=== PATIENT | male | born 1960 | race Caucasian/White ===

== ENCOUNTER 2021-08-27 09:35 | Emergency (ER) | payer OTHER, SELFPAY ==
--- NOTE | ~2021-08-27 | CT_ITS ---
EXAMINATION: CT brain wo con DATE: 08/27/2021 10:36 INDICATION: Confusion. Head injury. TECHNIQUE: Computed tomography (CT) of the head was performed without intravenous contrast. The mA wa s adjusted according to patient size. Iterative reconstruction technique was employed. The dose-lengt h product was 681.00 mGy-cm. COMPARISON: None FINDINGS: There is chronic encephalomalacia involving the left frontal lobe, anterior left temporal l obe, and left insula. There is no intracranial hemorrhage, acute infarction, or abnormal intracranial mass lesion. There is ex vacuo dilatation of left lateral ventricle. There are changes of left sided craniotomy. The mastoid air cells are normal. There is mild mucosal thickening in the paranasal sinu ses. There are likely changes of ocular lens replacement surgeries. IMPRESSION: 1. Chronic encephalomalacia involving the left frontal lobe, anterior left temporal lobe, and left in sula. Reviewed, dictated and finalized at location B. IMPRESSION: 1. Chronic encephalomalacia involving the left frontal lobe, anterior left temp oral lobe, and left insula.
--- NOTE | ~2021-08-27 | XR_ITS ---
EXAMINATION: XR hip RT 2V w AP pelvis DATE: 08/27/2021 10:43 INDICATION: Right hip pain. Fall. TECHNIQUE: An anteroposterior view of the pelvis and 2 views of right hip were obtained. COMPARISON: None. FINDINGS: Bone alignment is normal. No fracture. There is mild lumbar spondylosis. There is mild oste oarthritis of the hips. IMPRESSION: 1. Mild osteoarthritis of the hips. Reviewed, dictated and finalized at location B.
--- NOTE | ~2021-08-27 | XR_ITS ---
EXAMINATION: XR knee RT min 4V DATE: 08/27/2021 10:43 INDICATION: Right knee pain. Fall. TECHNIQUE: 4 views of right knee were obtained. COMPARISON: None. FINDINGS: Bone alignment is normal. No fracture. There is mild tricompartmental osteoarthritis charac terized by tiny osteophytes. No joint space narrowing. No knee joint effusion. IMPRESSION: 1. Mild right knee osteoarthritis. Reviewed, dictated and finalized at location B.
[2021-08-27 09:37] VITALS: BP 102/73; PULSE 84; RESP 18; TEMP 36.8; O2SAT 98
--- NOTE | 2021-08-27 11:14 | PC.NURSE ---
pt ambulatory with assistance. no pain noted.
--- NOTE | 2021-08-27 11:18 | ED.FALL ---
HPI - Fall General Chief Complaint: Fall Stated Complaint: fall Time Seen by Provider: 08/27/21 09:47 Source: patient Mode of arrival: ambulatory Limitations: no limitations History of Present Illness HPI Narrative: 60-year-old male presenting to the emergency department from his retirement after having a ground-level fall. 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 Patient did complain of some right hip pain and states he did strike his head. Patient denies loss of consciousness. Patient states he was able to ambulate after the incident with assistance. Related Data Home Medications Medication Instructions Recorded Confirmed acetaminophen 500 mg PO QID PRN 08/27/21 08/27/21 ascorbic acid (vitamin C) [Vitamin 250 mg PO DAILY 08/27/21 08/27/21 C] cholecalciferol (vitamin D3) 25 mcg PO DAILY 08/27/21 08/27/21 [Vitamin D3] divalproex 125 mg PO Q8H 08/27/21 08/27/21 famotidine 10 mg PO DAILY 08/27/21 08/27/21 fluvoxamine 100 mg PO HS 08/27/21 08/27/21 guaifenesin [Siltussin SA] 200 mg PO Q4H PRN 08/27/21 08/27/21 hydroxyzine HCl 25 mg PO TID PRN 08/27/21 08/27/21 ibuprofen 800 mg PO TID PRN 08/27/21 08/27/21 latanoprost 1 drp EACH EYE DAILY 08/27/21 08/27/21 lurasidone [Latuda] 120 mg PO DAILY 08/27/21 08/27/21 melatonin 3 mg PO HS PRN 08/27/21 08/27/21 hiegdblcsnbv-heh-fmzm-FA-vit K tablet PO 08/27/21 [Adults Multivitamin] olanzapine 20 mg PO DAILY 08/27/21 08/27/21 oxybutynin chloride 15 mg PO DAILY 08/27/21 08/27/21 polyethylene glycol ea MISCELLANEOUS 08/27/21 risperidone 4 mg PO BID 08/27/21 08/27/21 tamsulosin 0.4 mg PO DAILY 08/27/21 08/27/21 trihexyphenidyl 5 mg PO TID 08/27/21 08/27/21 Allergies Allergy/AdvReac Type Severity Reaction Status Date / Time benztropine Allergy Unknown Verified 08/27/21 09:54 haloperidol Allergy Unknown Verified 08/27/21 09:54 phenytoin [From Dilantin] Allergy Unknown Verified 08/27/21 09:54 ziprasidone [From Geodon] Allergy Unknown Verified 08/27/21 09:54 Review of Systems Review of Systems: CONSTITUTIONAL: Denies fever, chills, or sweats. EYES: Denies visual changes, redness, or discharge. ENT: Denies rhinorrhea, congestion, sore throat, or otalgia. CARDIOVASCULAR: Denies chest pain, palpitations, or edema. RESPIRATORY: Denies cough or dyspnea. GASTROINTESTINAL: Denies abdominal pain, nausea, vomiting, or diarrhea. GENITOURINARY: Denies dysuria or hematuria. SKIN: Denies rash or itching. MUSCULOSKELETAL: See HPI NEUROLOGIC: Patient has normal neuro baseline per caregiver Exam Narrative: APPEARANCE: Well appearing, no pain, no distress, well-nourished. HEAD: normocephalic, atraumatic. EYES: PERRLA/EOMI, conjunctivae clear. NOSE: Normal no drainage NECK: Supple. No adenopathy, no masses. RESPIRATORY: Airway patent, respirations nonlabored. Clear to auscultation bilaterally, no rales, rhonchi, wheezing. CARDIOVASCULAR: Regular rate and rhythm without murmurs rubs or gallops. ABDOMINAL: Soft, nontender, nondistended, normal bowel sounds MUSCULOSKELETAL: Moves all extremities. Some pain with passive motion of the right hip. NEURO: Alert. Cranial nerves II through XII intact. Good gait. Good coordination SKIN: Warm, dry. Normal Color Course Course Emergency Course: X-rays were negative for acute fractures. Head CT was negative for any acute intracranial abnormality. Patient was able to ambulate in the emergency department without pain or issue. Patient and caregiver directed on the results of his work-up Vital Signs Vital signs: Vital Signs Temperature 98.2 F 08/27/21 09:37 Pulse Rate 84 08/27/21 09:37 Respiratory Rate 18 08/27/21 09:37 Blood Pressure 102/73 08/27/21 09:37 Pulse Oximetry 98 08/27/21 09:37 Temperature 98.2 F 08/27/21 09:37 Pulse Rate 83 08/27/21 11:39 Respiratory Rate 18 08/27/21 11:39 Blood Pressure 103/76 08/27/21 11:39
--- NOTE | 2021-08-27 11:33 | PC.NURSE ---
Called [facility] and they are sending someone out to pick him up
[2021-08-27 11:39] VITALS: BP 103/76; PULSE 83; RESP 18; O2SAT 98
== END 2021-08-27 11:41 ==
PROVIDERS: Emergency Provider Emergency Medicine
DX: S09.90XA Unspecified injury of head, initial encounter (principal); S79.911A Unspecified injury of right hip, initial encounter; M17.11 Unilateral primary osteoarthritis, right knee; M16.0 Bilateral primary osteoarthritis of hip; W01.0XXA Fall on same level from slipping, tripping and stumbling without subsequent striking against object, initial encounter
CPT/HCPCS: 70450; 73502; 73564; 99284

== ENCOUNTER 2023-04-08 22:16 | Day surgery (SDC) | payer OTHER, SELFPAY ==
--- NOTE | ~2023-04-08 | CT_ITS ---
EXAMINATION: CTA abdomen pelvis DATE: 04/08/2023 23:24 INDICATION: gi bleed TECHNIQUE: Computed tomography (CT) of the abdomen and pelvis was performed with 100 mL Omnipaque-350 intravenous contrast, in the arterial phase. Automated exposure control and iterative reconstruction technique were employed. The dose-length product was 1245.44 mGy-cm. COMPARISON: None. FINDINGS: Lower thorax: Moderate hiatal hernia. Distal esophageal wall edema. Moderate coronary artery calcific ations. Liver: Enlarged. Granulomatous calcifications. Scattered hypodensities, too small to characterize but most likely represent cysts or hemangiomas. Diffuse fatty infiltration. Biliary/Gallbladder: Gallbladder is absent. No bile duct dilation. Pancreas: No mass or duct dilation. Spleen: Granulomatous calcifications Adrenals:No mass. Kidneys: Absent right kidney. No suspicious mass, obstructing stone, or hydronephrosis on the left. GI tract: In the stomach there are linear and curvilinear hyperdensities, that appear to be contiguou s, with scattered areas of gas bubbles within the folds. Focal 7 mm hyperdensity associated with a po rtion of this foreign body. No small or large bowel dilation. Mostly fluid-filled colon. Normal appen rommel. Mesentery/Peritoneum: No ascites, mass, or free air. Retroperitoneum: No mass. Atherosclerotic abdominal aortic and/or arterial calcifications. Pelvis: Pelvic organs are within normal limits. Soft Tissues: Soft tissues and body wall unremarkable. Bones: No acute osseous finding. IMPRESSION: Moderate esophagitis and hiatal hernia. Suspected foreign body in the stomach, correlate with history of recent ingestions. No CT evidence of extravasation to suggest acute GI bleed. Mostly fluid-filled colon as can be seen with diarrheal illness. Unclotted blood would appear similar ly, but again there is no current CT finding of active hemorrhage. Hepatomegaly and steatosis. Reviewed, dictated and finalized at location K. [facility] IMPRESSION: Moderate esophagitis and hiatal hernia. Suspected foreign body in the stomach, correlate with history of recent ingesti ons. No CT evidence of extravasation to suggest acute GI bleed. Mostly fluid-filled colon as can be seen with diarrheal illness. Unclotted bloo d would appear similarly, but again there is no current CT finding of active he morrhage. Hepatomegaly and steatosis.
[2023-04-08 22:18] VITALS: BP 115/90; PULSE 92; RESP 12; TEMP 36.5; O2SAT 98
[2023-04-08] MEDS: ONDANSETRON INJ 4 MG/2 ML VIAL IV PUSH (22:28)
[2023-04-08] MEDS: PANTOPRAZOLE SODIUM IV 40 MG VIAL 80 MG IV PUSH (22:29)
[2023-04-08 22:37] LABS: Basophils Percent Auto 0.2 % (0.2-1.2); Eosinophils Absolute Auto 0.2 K/mm3 (0-0.3); Eosinophils Percent Auto 2.9 % (0-4.4); Hematocrit 42.3 % (42.0-52.0); Hemoglobin 13.3 g/dL (14.0-18.0); Immature Granulocyte Absolute 0.02 K/mm3 (0.00-0.031); Immature Granulocyte Percent A 0.3 % (0-0.5); Lymphocytes Absolute Auto 0.43 K/mm3 (0.9-3.2); Lymphocytes Percent Auto 7.2 % (18.3-44.2); Mean Corpuscular HGB Conc 31.4 g/dl (32-36); Mean Corpuscular Hemoglobin 28.6 pg (26-34); Mean Platelet Volume 10.2 fl (7.4-10.4); Monocytes Absolute Auto 0.5 K/mm3 (0.1-0.6); Monocytes Percent Auto 7.6 % (2.6-8.5); Neutrophils Absolute Auto 4.9 K/mm3 (1.3-6.7); Neutrophils Percent Auto 81.8 % (45.5-73.1); Platelet Count Result 265 k/mm3 (150-375); Red Blood Count 4.65 M/mm3 (4.6-6.20); Red Cell Distribution Width 13.9 % (11.5-14.5); White Blood Count 5.9 K/mm3 (4.5-10.0)
[2023-04-08 22:48] LABS: Alanine Aminotransferase 26 U/L (6-50); Albumin Level 4.1 g/dL (3.5-5.1); Alkaline Phosphatase 78 U/L (38-126); Anion Gap 7 mmol/L (8-16); Aspartate Amino Transferase 33 U/L (17-59); Bilirubin,Total 0.5 mg/dL (0.2-1.3); Blood Urea Nitrogen 31 mg/dL (9-20); Calcium 8.8 mg/dL (8.4-10.2); Carbon Dioxide 29 mmol/L (22-30); Chloride 105 mmol/L (98-107); Estimated CRCL calculation 72 ml/min; Estimated Glomerular Filt Rate > 60; Glucose 123 mg/dL (65-110); Lipase 49 U/L (23-300); Sodium 141 mmol/L (137-145)
[2023-04-08 22:50] LABS: Prothrombin Time 13.2 Seconds (11.1-14.7)
[2023-04-08 22:51] LABS: Partial Thromboplastin Time 30.2 SECONDS (22.3-36.8)
[2023-04-08 22:59] LABS: Lactic Acid Reflex 1.6 mmol/L (0.7-2.0)
[2023-04-09] VITALS (43 sets, daily range): BP systolic 97–131; BP diastolic 66–87; PULSE 69–96; RESP 16–32; TEMP 36.7; O2SAT 90–100
--- NOTE | 2023-04-09 00:14 | ED.GENADULT ---
HPI - General Adult General Chief complaint: Abdominal Pain Stated complaint: ABD PAIN; N/V History of Present Illness HPI narrative: Patient presents to the emergency department by EMS from his nursing facility. Started vomiting after eating dinner. Patient denies abdominal pain. Denies diarrhea. He has a history of bipolar and schizophrenia. In no distress. He does report nausea EMS had not given him anything for nausea Related Data Home Medications Medication Instructions Recorded Confirmed acetaminophen 500 mg tablet 500 mg PO QID PRN Pain 08/27/21 08/27/21 ascorbic acid (vitamin C) 500 mg 250 mg PO DAILY 08/27/21 08/27/21 tablet (Vitamin C) cholecalciferol (vitamin D3) 25 25 mcg PO DAILY 08/27/21 08/27/21 mcg (1,000 unit) capsule (Vitamin D3) divalproex 125 mg capsule,delayed 125 mg PO Q8H 08/27/21 08/27/21 release sprinkle famotidine 10 mg tablet 10 mg PO DAILY 08/27/21 08/27/21 fluvoxamine 100 mg tablet 100 mg PO HS 08/27/21 08/27/21 guaifenesin 100 mg/5 mL oral 200 mg PO Q4H PRN Cough 08/27/21 08/27/21 liquid (Siltussin SA) hydroxyzine HCl 25 mg tablet 25 mg PO TID PRN Anxiety 08/27/21 08/27/21 ibuprofen 800 mg tablet 800 mg PO TID PRN Pain 08/27/21 08/27/21 latanoprost 0.005 % eye drops 1 drp EACH EYE DAILY 08/27/21 08/27/21 lurasidone 120 mg tablet (Latuda) 120 mg PO DAILY 08/27/21 08/27/21 melatonin 3 mg tablet 3 mg PO HS PRN Sleep 08/27/21 08/27/21 multivit with minerals-iron 18 tablet PO 08/27/21 mg-folic ac 400 mcg-vit K 25 mcg tablet (Adults Multivitamin) olanzapine 20 mg tablet 20 mg PO DAILY 08/27/21 08/27/21 oxybutynin chloride 15 mg 15 mg PO DAILY 08/27/21 08/27/21 tablet,extended release 24 hr polyethylene glycol ea miscellaneous 08/27/21 risperidone 4 mg tablet 4 mg PO BID 08/27/21 08/27/21 tamsulosin 0.4 mg capsule 0.4 mg PO DAILY 08/27/21 08/27/21 trihexyphenidyl 5 mg tablet 5 mg PO TID 08/27/21 08/27/21 Allergies Allergy/AdvReac Type Severity Reaction Status Date / Time benztropine Allergy Unknown Verified 08/27/21 09:54 haloperidol Allergy Unknown Verified 08/27/21 09:54 phenytoin [From Dilantin] Allergy Unknown Verified 08/27/21 09:54 ziprasidone [From Geodon] Allergy Unknown Verified 08/27/21 09:54 Course Vital Signs Vital signs: Vital Signs Temperature 36.5 C 04/08/23 22:18 Pulse Rate 92 04/08/23 22:18 Respiratory Rate 12 04/08/23 22:18 Blood Pressure 115/90 04/08/23 22:18 Pulse Oximetry 98 04/08/23 22:18 Oxygen Delivery Room Air 04/08/23 22:18 Temperature 36.5 C 04/08/23 22:18 Pulse Rate 87 04/09/23 03:53 Respiratory Rate 16 04/09/23 03:53 Blood Pressure 100/81 04/09/23 03:53 Pulse Oximetry 95 04/09/23 03:53 Oxygen Delivery Room Air 04/08/23 22:18 Medical Decision Making MDM Narrative Medical decision making narrative: patient will need GI referral. Hand Scraper on-call tonight. He has accepted this transfer to [facility] will likely get a bed tomorrow morning. At that time will consult GI here for possible admission. Patient stable with no additional vomiting. Concern for large foreign body in his stomach [facility] full and cannot accept patients. [place] facilities are also full. Dr Kwong with GI at [facility]. Pt accepted to the ER at [facility] )7:20a Pt still in the ED pending transfer. I spoke to GI, dr Lazar and he is willing to treat pt from our ED. Clarified that he will see the patient while in the ED. Pt does not need to be admitted. Vital Signs Vital Signs: Vital Signs Temperature 36.5 C 04/08/23 22:18 Pulse Rate 92 04/08/23 22:18 Respiratory Rate 12 04/08/23 22:18 Blood Pressure 115/90 04/08/23 22:18 Pulse Oximetry 98 04/08/23 22:18 Oxygen Delivery Room Air 04/08/23 22:18 Temperature 36.5 C 04/08/23 22:18 Pulse Rate 87 04/09/23 03:53 Respiratory Rate 16 04/09/23 03:53 Blood Pressure 100/81 04/09/23 03:53 Pulse Oximetry 95 04/09/23 03:53
--- NOTE | 2023-04-09 02:07 | PC.NURSE ---
Kalie from [facility] transfer center called to triage patient. Patient has been accepted to [facility] and still waiting for a bed.
[2023-04-09] MEDS: LACTATED RINGERS 1,000 ML 150 ML IV CONT (08:13)
--- NOTE | 2023-04-09 08:22 | SUR.PREOP ---
Called patient's facility in which he resides in. Spoke with his [employer] V[employer] Installer and Ernestine the nurse. Gave them an update on the patient's plan, inquired regarding transportation getting him back to the facility when his procedure had been completed. They asked to give them a 30 min head up and they would have transportation available for him. They inquired if any of his psychotropic medications were given to him during his stay. I told him none was given from the report I received from the ER. They asked if we could give him some of those medication as he was a fragile schizophrenia patient and were concerned that he had not received any of those medication. I confirmed what medications they wanted him to have and told them we would send a report of what he received and when in his discharge paperwork. Spoke with Ed from pharmacy and orders placed through pharmacy communication order. Phone number given to Ed Pharmacist of the facility the patient resides in case he had further questions on the medications.
--- NOTE | 2023-04-09 08:30 | WPDANESEPPF ---
Anes - Initial Pre Proc Eval Procedure: Operation Date: 04/09/23 15:00 Proposed Procedures p Esophagogastroduodenoscopy with Foreign Body Removal - Ari Sigala MD Date/Time: 04/09/23 08:30 Surgeon: Ari Sigala MD Pre Op Diagnosis: ABD PAIN; N/V Patient Data Age: 62 Gender: M Height: 1.75 m Weight: 101.1 kg Last Vital Signs Temp 98.1 F 04/09/23 07:50 Pulse 87 04/09/23 07:50 Resp 18 04/09/23 07:50 BP 122/85 04/09/23 07:50 Pulse Ox 97 04/09/23 07:50 O2 Del Method Room Air 04/09/23 07:50 Allergies Allergy/AdvReac Type Severity Reaction Status Date / Time benztropine Allergy Unknown Verified 04/09/23 08:03 haloperidol Allergy Unknown Verified 04/09/23 08:03 phenytoin [From Dilantin] Allergy Unknown Verified 04/09/23 08:03 ziprasidone [From Geodon] Allergy Unknown Verified 04/09/23 08:03 Home Medications Medication Instructions Recorded Confirmed Type acetaminophen 500 mg tablet 500 mg PO QID PRN Pain 08/27/21 04/09/23 History ascorbic acid (vitamin C) 500 mg 250 mg PO DAILY 08/27/21 04/09/23 History tablet (Vitamin C) cholecalciferol (vitamin D3) 25 25 mcg PO DAILY 08/27/21 04/09/23 History mcg (1,000 unit) capsule (Vitamin D3) divalproex 125 mg capsule,delayed 125 mg PO Q8H 08/27/21 04/09/23 History release sprinkle famotidine 10 mg tablet 10 mg PO DAILY 08/27/21 04/09/23 History fluvoxamine 100 mg tablet 100 mg PO HS 08/27/21 04/09/23 History guaifenesin 100 mg/5 mL oral 200 mg PO Q4H PRN Cough 08/27/21 04/09/23 History liquid (Siltussin SA) hydroxyzine HCl 25 mg tablet 25 mg PO TID PRN Anxiety 08/27/21 04/09/23 History ibuprofen 800 mg tablet 800 mg PO TID PRN Pain 08/27/21 04/09/23 History latanoprost 0.005 % eye drops 1 drp EACH EYE DAILY 08/27/21 04/09/23 History lurasidone 120 mg tablet (Latuda) 120 mg PO DAILY 08/27/21 04/09/23 History melatonin 3 mg tablet 3 mg PO HS PRN Sleep 08/27/21 04/09/23 History multivit with minerals-iron 18 tablet PO 08/27/21 History mg-folic ac 400 mcg-vit K 25 mcg tablet (Adults Multivitamin) olanzapine 20 mg tablet 20 mg PO DAILY 08/27/21 04/09/23 History oxybutynin chloride 15 mg 15 mg PO DAILY 08/27/21 04/09/23 History tablet,extended release 24 hr polyethylene glycol ea miscellaneous 08/27/21 History risperidone 4 mg tablet 4 mg PO BID 08/27/21 04/09/23 History tamsulosin 0.4 mg capsule 0.4 mg PO DAILY 08/27/21 04/09/23 History trihexyphenidyl 5 mg tablet 5 mg PO TID 08/27/21 04/09/23 History Laboratory Tests 04/08/23 22:31 WBC 5.9 K/mm3 (4.5-10.0) RBC 4.65 M/mm3 (4.6-6.20) Hgb 13.3 L g/dL (14.0-18.0) Hct 42.3 % (42.0-52.0) MCV 91.0 fl (80-100) MCH 28.6 pg (26-34) MCHC 31.4 L g/dl (32-36) RDW 13.9 % (11.5-14.5) Plt Count 265 k/mm3 (150-375) MPV 10.2 fl (7.4-10.4) Immature Gran % (Auto) 0.3 % (0-0.5) Neut % (Auto) 81.8 H % (45.5-73.1) Lymph % (Auto) 7.2 L % (18.3-44.2) Kingfisher % (Auto) 7.6 % (2.6-8.5) Eos % (Auto) 2.9 % (0-4.4) Baso % (Auto) 0.2 % (0.2-1.2) Lymph # (Auto) 0.43 L K/mm3 (0.9-3.2) Kingfisher # (Auto) 0.5 K/mm3 (0.1-0.6) Eos # (Auto) 0.2 K/mm3 (0-0.3) Baso # (Auto) 0.0 K/mm3 (0.0-0.1) Abs Immat Gran (auto) 0.02 K/mm3 (0.00-0.031) Absolute Neuts (auto) 4.9 K/mm3 (1.3-6.7) Absolute Nucleated RBC 0.0 K/mm3 (0.0-0.012) Nucleated RBC % 0.0 % (0.0-0.2) PT 13.2 Seconds (11.1-14.7) INR 1.0 APTT 30.2 SECONDS (22.3-36.8) Sodium 141 mmol/L (137-145) Potassium 4.0 mmol/L (3.4-5.0) Chloride 105 mmol/L (98-107) Carbon Dioxide 29 mmol/L (22-30) Anion Gap 7 L mmol/L (8-16) BUN 31 H mg/dL (9-20) Creatinine 1.10 mg/dL (0.7-1.3) Estim Creat Clear Calc 72 ml/min Estimated GFR > 60 (59 - ) Glucose 123 H mg/dL (65-110) Lactic Acid 1.6 mmol/L (0.7-2.0) Calcium
--- NOTE | 2023-04-09 08:38 | PM.HPGS ---
History of Present Illness History of Present Illness Consent: Risks, benefits, and alternatives have been discussed and questions answered. Patient agrees to proceed with procedure. Chief complaint: ABD PAIN; N/V Narrative: Ivan Braswell is a 62 year old male with n/v after dinner last nigh (h/o schizophrenia living in local [place]), CT scan found possible foreign body in stomach but he denies recent ingestion. Review of Systems Constitutional: Constitutional: Denies headache(s) and Denies weakness Eyes: Eyes: Denies blurry vision ENT: Reports Normal hearing present, Denies headache(s) and Denies neck pain Cardiovascular: Cardiovascular: Denies chest pain and Denies dyspnea Respiratory: Respiratory: Denies dyspnea Gastrointestinal: Gastrointestinal: Reports no additional gastrointestinal complaints Genitourinary: Genitourinary: Denies dysuria Musculoskeletal: Musculoskeletal: Denies neck pain Integumentary/Breasts: Skin/Breast: Denies dry skin Neurologic: Reports Normal hearing present, Denies headache(s) and Denies weakness Psychiatric: Psychiatric: Denies anxiety Endocrine: Endocrine: Denies change in body appearance Hematologic/Lymphatic: Hematologic/Lymphatic: Denies easy bleeding Allergic/Immunologic: Allergic/Immunologic: Denies urticaria PMFSH Past Medical History Medical History (Updated 04/09/23 @ 08:39 by Ari Sigala MD) Abnormal CT scan, stomach Nausea and vomiting in adult Meds Home Medications and Allergies Home Medications Medication Instructions Recorded Confirmed Type acetaminophen 500 mg tablet 500 mg PO QID PRN Pain 08/27/21 04/09/23 History ascorbic acid (vitamin C) 500 mg 250 mg PO DAILY 08/27/21 04/09/23 History tablet (Vitamin C) cholecalciferol (vitamin D3) 25 25 mcg PO DAILY 08/27/21 04/09/23 History mcg (1,000 unit) capsule (Vitamin D3) divalproex 125 mg capsule,delayed 125 mg PO Q8H 08/27/21 04/09/23 History release sprinkle famotidine 10 mg tablet 10 mg PO DAILY 08/27/21 04/09/23 History fluvoxamine 100 mg tablet 100 mg PO HS 08/27/21 04/09/23 History guaifenesin 100 mg/5 mL oral 200 mg PO Q4H PRN Cough 08/27/21 04/09/23 History liquid (Siltussin SA) hydroxyzine HCl 25 mg tablet 25 mg PO TID PRN Anxiety 08/27/21 04/09/23 History ibuprofen 800 mg tablet 800 mg PO TID PRN Pain 08/27/21 04/09/23 History latanoprost 0.005 % eye drops 1 drp EACH EYE DAILY 08/27/21 04/09/23 History lurasidone 120 mg tablet (Latuda) 120 mg PO DAILY 08/27/21 04/09/23 History melatonin 3 mg tablet 3 mg PO HS PRN Sleep 08/27/21 04/09/23 History multivit with minerals-iron 18 tablet PO 08/27/21 History mg-folic ac 400 mcg-vit K 25 mcg tablet (Adults Multivitamin) olanzapine 20 mg tablet 20 mg PO DAILY 08/27/21 04/09/23 History oxybutynin chloride 15 mg 15 mg PO DAILY 08/27/21 04/09/23 History tablet,extended release 24 hr polyethylene glycol ea miscellaneous 08/27/21 History risperidone 4 mg tablet 4 mg PO BID 08/27/21 04/09/23 History tamsulosin 0.4 mg capsule 0.4 mg PO DAILY 08/27/21 04/09/23 History trihexyphenidyl 5 mg tablet 5 mg PO TID 08/27/21 04/09/23 History Allergies Allergy/AdvReac Type Severity Reaction Status Date / Time benztropine Allergy Unknown Verified 04/09/23 08:03 haloperidol Allergy Unknown Verified 04/09/23 08:03 phenytoin [From Dilantin] Allergy Unknown Verified 04/09/23 08:03 ziprasidone [From Geodon] Allergy Unknown Verified 04/09/23 08:03 Vital Signs Vital Signs - 24 hr 04/08/23 22:18 04/09/23 00:29 04/09/23 02:05 Temperature 97.7 F Pulse Rate 92 82 87 Respiratory Rate 12 22 H 26 H Blood Pressure 115/90 110/84 Pulse Oximetry 98 95 94 Oxygen Delivery Room Air 04/09/23 02:15 04/09/23 02:16 04/09/23 02:41 Temperature Pulse Rate 88 87 87 Respiratory Rate 26 H 26 H 26 H Blood Pressure 102/82 Pulse Oximetry 96 95 98 Oxygen Delivery 04/09/23 02:45 04/09/23 02:46 04/09/23 03:00 Temp
[2023-04-09] MEDS: OLANZapine 5 MG TABLET 10 MG PO (10:02)
[2023-04-09] MEDS: risperiDONE 1 MG TABLET 4 MG PO (10:02)
[2023-04-09] MEDS: DIVALPROEX SODIUM SPRINKLE 125 MG CAP.DR PO (10:02)
--- NOTE | 2023-04-09 10:06 | SUR.PHASEII ---
Report given to RN at [facility]. Discharge instructions given. Notified RN of home meds to be given and documented on discharge paperwork. Awaiting ambulance for transfer at this time.
--- NOTE | 2023-04-09 10:27 | SUR.PHASEII ---
This Rn Spoke to pt facility nurse at 0939 and in which was told that pt could not be transported via facility transport and that he must come by ambulance. RN asked for reasoning and facility nurse stated her DON informed her he must come back via ambulance.
== END 2023-04-09 10:58 | disposition home or self-care (01) ==
LOC: ANHED 04-09 07:42 → ANHENDO 04-09 07:44
PROVIDERS: Emergency Provider Emergency Medicine; Visit Provider Internal Medicine Gastroenterology
PROC: 0DJ08ZZ Inspection of Upper Intestinal Tract, Via Natural or Artificial Opening Endoscopic (ICD-10-PCS; CPT 43235; principal; 2023-04-09 15:00)
DX: T18.128A Food in esophagus causing other injury, initial encounter (principal); K31.84 Gastroparesis; F20.9 Schizophrenia, unspecified; Z79.899 Other long term (current) drug therapy; E66.9 Obesity, unspecified; Z68.32 Body mass index [BMI] 32.0-32.9, adult
CPT/HCPCS: 43247; 36415; 74174; 80053; 83605; 83690; 85025; 85610; 85730; 86850; 86900; 86901; 96374; 96375; 99285; A9270; C9113; J0330; J2405; J2704; J7120; Q9967